=== PATIENT | male | born 1955 | race Hispanic/Latino ===

== ENCOUNTER → 2018-08-09 | Outpatient (CLI) | payer OTHER ==
--- NOTE | 2018-08-09 12:14 | Diagnostic Imaging Report ---
EXAM: US ABDOMEN COMPLETE DATE: 08/09/2018 10:20 AM Time stamp on exam: 10:20 AM INDICATION: Right upper quadrant pain COMPARISON: None TECHNIQUE: Transverse and longitudinal johnson scale and color doppler sonographic images of the upper abdomen were obtained. FINDINGS: LIVER 14.9 cm in the right midclavicular line. Normal echogenicity, normal contour, no masses. SPLEEN 7.4 cm in maximum diameter. Normal echogenicity, no masses. GALLBLADDER No stones, sludge, wall-thickening or pericholecystic fluid. Negative sonographic Bunch's sign. BILE DUCTS No intra nor extra-hepatic biliary dilation. Common bile duct measures 0.6 cm PANCREAS: Visualized portions are normal. RIGHT KIDNEY: 10.5 cm Echogenicity: Normal Collecting System: No hydronephrosis Stones: None Cyst/Mass: None LEFT KIDNEY: 9.4 cm Echogenicity: Normal Collecting System: No hydronephrosis Stones: None Cyst/Mass: None VESSELS: Aorta: Nonaneurysmal Inferior Vena Cava: Patent Main Portal Vein: 0.8 cm, normal size with hepatopetal flow. FREE FLUID: None IMPRESSION: Unremarkable abdominal ultrasound. Signed by: Dr. Hemanth Guerra M.D. on 08/09/2018 12:11 PM
== END ==
LOC: US 10:05
PROVIDERS: ATTEND Internal Medicine Gastroenterology
DX: R10.13 Epigastric pain (principal); R10.11 Right upper quadrant pain; E66.9 Obesity, unspecified; Z71.3 Dietary counseling and surveillance
CPT/HCPCS: 76700